=== PATIENT | female | born 1965 | race Caucasian/White ===

== ENCOUNTER 2024-01-01 14:42 | Emergency (ER) | payer OTHER, SELFPAY ==
[2024-01-01 14:45] VITALS: BP 145/87
--- NOTE | 2024-01-01 15:48 | ED.SKININJ ---
HPI-Injury
<Naa Thorne PA-C - Last Filed: 01/01/24 19:20>
General
Chief Complaint: Bite
Source: patient
Exam Limitations: none
Time Seen by Provider: 01/01/24 15:44
Nursing documentation reviewed up to this point in time: agreed with
Travel History
Have you had any contact with someone who has COVID-19?: No
Do you have any symptoms of coronavirus? Fever > 100 degrees, chills, cough, shortness of breath, sore throat, loss of taste or smell, muscle aches, or headache?: No
History of Present Illness-Injury
Is this injury a work related problem?: No
Is pt an associate of [facility]?: No
Initial Injury comments:
58-year-old female no significant past medical history presenting emergency department today with concerns of redness and swelling and her right hand following a dog bite. Patient states that this past weekend, patient was trying to break up a
fight between a valdovinos retriever and a Rottweiler. This is when she got bit. Patient denies any other trauma, denies falling to the ground. Patient states that both dogs are up-to-date on her vaccinations. Patient is personally up-to-date on her
tetanus vaccination. Patient denies any fevers or chills, any nausea or vomiting, any trouble breathing, any chest pain. Patient denies any allergies to any antibiotics. Patient states that since the injury, she has been thoroughly cleaning the
area and applying it back ointment as well as wrapping her hand.
Past History
<Naa Thorne PA-C - Last Filed: 01/01/24 19:20>
Past History
ED Past Medical History: None and Other (Heart murmur)
ED Past Surgical History: Cholecystectomy and
Social History
Tobacco: Non-smoker
Alcohol: Occasional
Personal:
Living: with family
Family History
Family History: Early CAD
Review of Systems
<Naa Thorne PA-C - Last Filed: 01/01/24 19:20>
Review of Systems
All Other Systems: ROS reviewed and negative except as documented in HPI and ROS
Phy Exam
<Naa Thorne PA-C - Last Filed: 01/01/24 19:20>
Physical Exam
Physical Exam:
General: Patient is well appearing and in no acute distress; non-toxic
Skin: Warm and dry, there is 2 puncture wounds noted at the base of the right thenar eminence, one on the volar surface and one on the dorsal surface. Patient had surrounding swelling and some mild erythema. No other rashes or lesions. No
drainage from the puncture wounds.
Head: Normocephalic, atraumatic
Eyes: Sclera non-icteric. EOMs intact.
Cardiac: Regular rate
Peripheral Vascular: 2+ radial and ulnar pulses on the right. No lower extremity swelling or edema.
Pulm: Normal respiratory effort
Musculoskeletal: Patient has full active and past range of motion of right wrist joint and the right elbow without pain. Patient has no bony tenderness palpation of the right wrist, right second through fifth phalanx, patient does have a lot of
tenderness to palpation at the base of the first proximal phalanx. No palpable bony deformities.
Neuro: CN II-XII intact, no focal neurologic deficits.
Psychiatric: Appropriate mood and affect.
Course
<Naa Thorne PA-C - Last Filed: 01/01/24 19:20>
Orders/Labs/Results
Orders:
Orders
01/01/24 15:56
CR Hand - Right 2 Views Urgent
Comment:
Reason For Exam: right thumb swelling and pain following bite
Vital Signs
Initial and Last Documented VS:
Initial Vital Signs
Temp Pulse Resp BP Pulse Ox
98.8 F 71 18 145/87 98
01/01/24 14:45 01/01/24 14:45 01/01/24 14:45 01/01/24 14:45 01/01/24 14:45
Last Documented Vital Signs
Temp Pulse Resp BP Pulse Ox
98.8 F 71 18 145/87 98
01/01/24 14:45 01/01/24 14:45 01/01/24 14:45 01/01/24 14:45 01/01/24 14:45
<Thuan Roberts DO - Last Filed: 01/01/24 16:40>
Orders/Labs/Results
Orders:
Orders
01/01/24 15:56
CR Hand - Right 2 Views Urgent
Comment:
Reason For Exam: right thumb swelling and pain following bite
Vital Signs
Initial and Last Documented VS:
Initial Vital Signs
Temp Pulse Resp BP Pulse Ox
98.8 F 71 18 145/87 98
01/01/24 14:45 01/01/24 14:45 01/01/24 14:45 01/01/24 14:45 01/01/24 14:45
Last Documented Vital Signs
Temp Pulse Resp BP Pulse Ox
98.8 F 71 18 145/87 98
01/01/24 14:45 01/01/24 14:45 01/01/24 14:45 01/01/24 14:45 01/01/24 14:45
<Naa Thorne PA-C - Last Filed: 01/01/24 19:20>
MDM/Problems Addressed
Differential Diagnosis Includes:
Differentials include cellulitis, abrasion, cyst, laceration, erysipelas, abscess, phalanx fracture
MDM/Problems Addressed:
hand pain, dog bite
Chronic conditions affecting care:
N/A
Acute Exacerbation and/or Progression of Chronic Illness:
N/A
<Naa Thorne PA-C - Last Filed: 01/01/24 19:20>
*Radiology
Radiology exam reviewed: preliminary read by ED provider (no acute fracture dislocation)
*Pulse Oximetry
Patient hypoxic: no
*Critical Care Note
Total Time (30-74mins, 75-104mins- exclusive of procedures): Not Applicable
Data Reviewed
Review of Other/Old Records Reveals: Records (Reviewed ER physician documentation from 10/19/2022)
Source: patient and records
<Naa Thorne PA-C - Last Filed: 01/01/24 19:20>
Patient Management
Escalation/DeEscalation of care consider admission/obs:
58-year-old female no significant past medical history presenting emergency department today with concerns of redness and swelling and her right hand following a dog bite. On physical exam, patient has full active and past range of motion of right
wrist joint and the right elbow without pain. Patient has no bony tenderness palpation of the right wrist, right second through fifth phalanx, patient does have a lot of tenderness to palpation at the base of the first proximal phalanx. No
palpable bony deformities. There is 2 puncture wounds noted at the base of the right thenar eminence, one on the volar surface and one on the dorsal surface. Patient had surrounding swelling and some mild erythema. No other rashes or lesions. No
drainage from the puncture wounds. Considering patient's significant tenderness to first proximal phalanx along with overlying ecchymosis, x-rayed was obtained which was negative for any acute fracture or dislocation. Considering patient's vitals
are stable and she has no systemic signs or symptoms, no lab work indicates time. Patient can be discharged with a course of Augmentin. Patient will follow-up with her primary care
ED Attending Note
<Naa Thorne PA-C - Last Filed: 01/01/24 19:20>
-
Portions of this chart may have been created with voice recognition software.� Occasional wrong word or��sound alike� substitutions may have occurred due to the inherent limitations of voice recognition software.
<Thuan Roberts, DO - Last Filed: 01/01/24 16:40>
ED Attending Note
Patient seen and examined by attending physician: Yes
I performed a history and physical exam of patient and discussed management with resident, I reviewed resident's note and agree with documented findings and plan of care.: Yes
ED Attending Note:
I have reviewed and agree with history and plan by Naa Thorne. My exam reveals mild edema of the thumb, with ecchymosis about wrist, no erythema. Patient able to fully range thumb and wrist. Do not suspect septic arthritis. Do not suspect
cellulitis. Dog vaccinations up-to-date, patient tetanus up-to-date. Treat with Augmentin. Primary care follow-up.
Discharge Plan
Departure
Patient Disposition: Home (Routine Discharge)
Date of Disposition: 01/01/24
Time of Disposition: 16:25
Patient with high blood pressure during this ER visit?: Yes
Condition: Good
Discharge Problem:
Dog bite
Instructions: Animal Bites (DC), BLOOD PRESSURE
Prescriptions:
New
amoxicillin-pot clavulanate 875-125 mg tablet
1 tab PO BID 7 Days Qty: 14 0RF
No Action
fluoxetine 20 MG capsule
20 mg PO DAILY
norethindrone-ethin estradiol [Necon 0.5/35 (28)] 1 EACH tablet
1 ea PO DAILY
meclizine 25 mg tablet
25 mg PO TID PRN (Reason: dizziness) Qty: 10 0RF
Activity Restrictions/Additional Instructions:
Your x-ray did not show any evidence of acute fracture or dislocation.
We sent Augmentin to your pharmacy. Please take this with food. Please take 1 tablet twice daily for 7 days. You can start this tomorrow.
Please return emergency department should you experience fevers or chills, intractable vomiting, purulent drainage from your hand, extension of the redness up your arm, or other concerning signs or symptoms.
Please follow-up with your primary care provider to ensure the resolution of your symptoms.
Interventions
Interventions:
*Risk Screen - Suicide Last Done: 01/01/24 16:36
*General Assessment Last Done: 01/01/24 16:36
*ED COVID-19 Vaccine History Last Done: 01/01/24 16:36
*Nursing Disposition Last Done: 01/01/24 16:36
ED-Skin Assessment Last Done: 01/01/24 16:22
Discharge Date and Time
Discharge Date/Time: 01/01/24 16:37
Print Language: [id number]
== END 2024-01-01 16:37 | disposition home or self-care (01) ==
LOC: EMR 14:42
PROVIDERS: EMERGENCY PHYSICIAN Emergency Medicine; FAMILY PHYSICIAN Nurse Practitioner Adult Health
DX: R22.31 Localized swelling, mass and lump, right upper limb (principal); W54.0XXA Bitten by dog, initial encounter; Z82.49 Family history of ischemic heart disease and other diseases of the circulatory system; Z90.49 Acquired absence of other specified parts of digestive tract
CPT/HCPCS: 99283; 73120

== ENCOUNTER → 2024-05-28 10:50 | Outpatient (REF) | payer OTHER, SELFPAY | LOC: HWRAD 10:50 | PROVIDERS: ATTENDING PHYSICIAN Nurse Practitioner Adult Health | DX: M65.4 Radial styloid tenosynovitis [de Quervain] (principal); M25.532 Pain in left wrist; M79.645 Pain in left finger(s) | CPT/HCPCS: 73110; 73140 ==

== ENCOUNTER 2024-12-05 15:30 | Inpatient (IN) | payer BC, SELFPAY ==
[2024-12-05 11:50] VITALS: BP 116/62
[2024-12-05 12:10] LABS: % Basophils 0.3 % (0-2); % Eosinophils 0.1 % (0-6); % Immature Granulocytes 0.3 % (0-0.5); % Lymphocytes 11.5 % (20.5-51.1); % Monocytes 4.1 % (1.7-9.3); % Neutrophils 83.7 % (42.2-75.2); Absolute Lymphocytes 1.3 10^3/uL (1.2-3.4); Absolute Monocytes 0.5 10^3/uL (0.1-0.6); Absolute Neutrophils 9.1 10^3/uL (1.4-6.5); Hematocrit 37.5 % (37.0-47.0); Hemoglobin 13.1 g/dL (12.0-16.0); Mean Corp Hgb Conc. 34.9 g/dL (33.0-37.0); Mean Corpuscular Hgb 31.5 pg (27.0-31.0); Mean Corpuscular Volume 90.1 fL (81.0-99.0); Mean Platelet Volume 8.7 fL (7.4-10.4); Nucleated Red Blood Cells % 0 %; Platelet Count 209 10^3/uL (130-400); Red Blood Cell Count 4.16 10^6/uL (4.20-5.40); Red Cell Dist. Width 11.6 % (11.5-14.5); White Blood Cell Count 10.9 10^3/uL (4.8-10.8)
[2024-12-05 12:24] LABS: ALT (SGPT) 35 U/L (0-35); AST (SGOT) 28 U/L (14-36); Albumin 5.2 g/dl (3.5-5.0); Alkaline Phosphatase 64 U/L (38-126); Blood Urea Nitrogen 22 mg/dl (7-17); Calcium 9.5 mg/dl (8.4-10.2); Carbon Dioxide 24 mmol/L (22-30); Chloride 103 mmol/L (98-107); Glucose 122 mg/dl (70-99); Lipase 34 U/L (23-300); Potassium 4.2 mmol/L (3.5-5.1); Sodium 139 mmol/L (135-145); Total Bilirubin 1.1 mg/dl (0.2-1.3); Total Protein 7.7 g/dl (6.3-8.2); eGFR > 60.00
[2024-12-05 13:02] VITALS: BP 97/56
--- NOTE | 2024-12-05 13:03 | ED.GENMED ---
History of Present Illness
General
Chief Complaint: Abdominal Pain
Source: patient
Exam Limitations: none
Time Seen by Provider: 12/05/24 12:38
History of Present Illness
History of Present Illness:
59yoF with a history of hyperlipidemia and anxiety presenting for evaluation of abdominal pain. Patient initially started to have pain throughout her lower abdomen and lower back about 2 weeks ago. The pain was initially a mild dull discomfort.
The abdominal discomfort seemed to resolve but the back pain persisted. She developed more severe pain in her lower abdomen yesterday evening. Pain is worse with any sort of movement. She has not taken anything [id number] for her symptoms.
She is otherwise asymptomatic and denies any fevers, nausea, vomiting, diarrhea, constipation, dysuria, rectal bleeding. Patient had a normal bowel movement this morning. She was seen by her PCP today and blood pressure was reportedly 80s/40s in
the office. Prior abdominal surgeries include a cholecystectomy and a section. She had a colonoscopy in 2021 which was reportedly normal.
Past History
Past History
ED Past Medical History: None and Other (Heart murmur)
ED Past Surgical History: Cholecystectomy and
Social History
Tobacco: Non-smoker
Alcohol: Occasional
Personal:
Living: with family
Family History
Family History: Early CAD
Phy Exam
General Physical Exam
General Presentation: well appearing
General Skin: warm and dry
General Habitus: normal
General Mental: alert
ENT Exam
ENT Exam: normocephalic
Cardiovascular Exam
Cardiovascular Exam: regular rate/rhythm
Pulmonary Exam
Pulmonary Exam: lungs clear, no respiratory distress, no rales, no crackles, no rhonchi and no wheezing
Gastrointestinal Exam
Gastrointestinal Exam: soft, non distended and other (+Generalized abdominal tenderness, worse in the suprapubic and LLQ regions. +Rebound tenderness and voluntary guarding. )
Neurological Exam
Neurological Exam: alert
Janice Coma Scale
Eye Opening: Spontaneous
Verbal Response: Oriented
Motor Response: Obeys Commands
GCS Total Score: 15
Skin Exam
Skin Exam: normal color and warm/dry
Psychiatric Exam
Psychiatric Exam: normal mood/affect
Course
Orders/Labs/Results
Orders:
Orders
12/05/24 12:01
Complete Blood Count/With Diff Urgent
Comprehensive Metabolic Panel Urgent
Lipase Urgent
12/05/24 13:01
0.9% Sodium Chloride 1000 ml [Nss] 1,000 ml IV BOLUS
Ketorolac [Toradol] 15 mg IV NOW STA
12/05/24 13:02
CT Abd/pelvis W Iv Cont Urgent
Comment:
Reason For Exam: Lower abd pain
Urinalysis Reflex To Culture Urgent
Date Specimen was Collected: 12/05/24
Time Specimen was Collected: 13:02
12/05/24 13:03
Lactate Level [Lactic Acid] Urgent
12/05/24 14:26
Piperacillin/Tazo 4.5 Gram [Zosyn] 4.5 gram in 100 ml IV NOW
12/05/24 15:00
Admit/Transfer Patient As Directed
Co-Sign Provider:
Level of Care: Inpatient admission
Assign to:: Medical/Surgical
Physician / Group: ebony
Diagnosis: acute diverticulitis
Reason for Hospitalization: acute diverticulitis
Expected length of stay greater than two midnights?: Yes
ELOS- Estimated Length of Stay in days: 3
I certify the patient meets the requirements for IP care: Yes
Code Status As Directed
Resuscitation Status: Full Code
PRN Pain Medication Management As Directed
May give lesser potent ordered pain med per pt: Yes
preference::
Protocol:: Medication orders for pain may be administered in a
manner that supports deferring to patient preference
when the pt is:
- Requesting an ordered lesser potent pain medication.
Least to most potent pain medications are defined
as: acetaminophen < NSAID < tramadol < opioids
(morphine, oxycodone, hydromorphone).
- Requesting a lesser dose of the same medication IF
ORDERED.
- Requesting a less intrusive route of administration
if both routes are prescribed by the provider (PO <
IV).
Abnormal Lab Results
12/05/24
12:01
WBC 10.9 H 10^3/uL
(4.8-10.8)
RBC 4.16 L 10^6/uL
(4.20-5.40)
MCH 31.5 H pg
(27.0-31.0)
Absolute Neuts (auto) 9.1 H 10^3/uL
(1.4-6.5)
Neutrophils % 83.7 H %
(42.2-75.2)
Lymphocytes % 11.5 L %
(20.5-51.1)
BUN 22 H mg/dl
(7-17)
Glucose 122 H mg/dl
(70-99)
Albumin 5.2 H g/dl
(3.5-5.0)
12/05/24 12:01
12/05/24 12:01
Vital Signs
Initial and Last Documented VS:
Initial Vital Signs
Temp Pulse Resp BP Pulse Ox
97.7 F 94 18 116/62 100
12/05/24 11:50 12/05/24 11:50 12/05/24 11:50 12/05/24 11:50 12/05/24 11:50
Last Documented Vital Signs
Temp Pulse Resp BP Pulse Ox
97.7 F 94 18 112/84 100
12/05/24 11:50 12/05/24 11:50 12/05/24 11:50 12/05/24 14:44 12/05/24 11:50
MDM/Problems Addressed
Differential Diagnosis Includes:
59yoF here with lower abd pain. Started with mild pain 2 weeks ago. Became severe last night. Worse with movement. BP 80s/40s at PCP appt today. BP 116/62 on arrival. She is non-toxic appearing. There is significant rebound tenderness on exam.
Differential diagnosis includes but is not limited to: Appendicitis, diverticulitis, perforated viscus, ischemic colitis
Initial ED plan: Abdominal labs obtained in triage. WBC is minimally elevated at 10.9. Remainder of labs unremarkable. Will check lactate, UA, and CT abdomen. IV Toradol and fluid bolus for symptoms.
*Critical Care Note
Total Time (30-74mins, 75-104mins- exclusive of procedures): Not Applicable
Update Note
Update Note:
Lactate within normal limits. CT shows acute diverticulitis. No evidence of perforation or abscess. 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 IV Zosyn ordered and patient admitted to the
hospitalist service for further care.
ED Attending Note
-
Portions of this chart may have been created with voice recognition software.� Occasional wrong word or��sound alike� substitutions may have occurred due to the inherent limitations of voice recognition software.
Discharge Plan
Departure
Patient Disposition: Admit
Date of Disposition: 12/05/24
Time of Disposition: 14:48
Presentation/result/management discussed w/ accepting MD/DO: Hospitalist
Discharge Problem:
Acute diverticulitis
Interventions
Interventions:
*Risk Screen - Suicide Last Done: 12/05/24 11:50
*General Assessment Last Done: 12/05/24 11:50
*Neglect/Abuse Screening Last Done: 12/05/24 11:50
WL-Imcdcm-Kvrdeupprr Assessment Last Done: 12/05/24 12:40
ED- Cardiac Assessment Last Done: 12/05/24 12:40
ED- Neurological Assessment Last Done: 12/05/24 12:40
ED- Pulmonary Assessment Last Done: 12/05/24 12:40
[2024-12-05] MEDS: NSS 1000 IV ×2 (13:08→18:27)
[2024-12-05] MEDS: TORADOL 15 MG IV (13:08)
[2024-12-05 13:30] VITALS: BP 99/62
[2024-12-05 13:37] LABS: Lactic Acid 0.9 mmol/L (0.7-2.0)
[2024-12-05 14:44] VITALS: BP 112/84
[2024-12-05] MEDS: ZOSYN 100 IV (14:46)
--- NOTE | 2024-12-05 14:49 | HPS.HSE ---
Family Physician
-
Family Physician: Tabitha Ramirez
Chief Complaint
-
left sided abdominal pain
History of Present Illness
59yoF with a history of hyperlipidemia and anxiety presenting for evaluation of left-sided abdominal pain radiating to left lower back and shoulder. It started 2 weeks ago. At that time the pain was dull, bloating which resolved in 2 days. She
developed more severe pain in her left lower abdomen yesterday evening radiating to her left lower back and left shoulder. Patient stated poor appetite for past 2 weeks. Patient denied nausea vomiting, diarrhea or constipation. Patient complained
of headache and dizzy. Patient denied any fever, chills, chest pain, short of breath. Patient denied any dysuria hematuria.
CT with acute diverticulitis in the distal descending colon. Patient received IV Zosyn in ER. Admitting for further med
Medical History
Past Medical History
Past Medical History: Reports Other
Additional Past Medical History:
Depression/anxiety, IBS, hellp, migraine
Past Surgical History: Reports Other
Additional Past Surgical History:
Cholecystectomy,
Social History
Tobacco: Non-smoker
Alcohol: Occasional
Personal:
Living: With Family
Family History
Family History: Not pertinent
Allergies / Home Medications
Allergies reflects when Allergies were last updated in [facility].
Home Medications with original date entered in [facility]
Allergy/Medication List:
Allergies
Allergy/AdvReac Type Severity Reaction Status Date / Time
No Known Allergies Allergy Verified 12/05/24 11:50
Home Medications
fluoxetine 20 mg capsule 20 mg PO HS 07/26/14
cetirizine 10 mg tablet (Zyrtec) 10 mg PO HS 12/05/24
rosuvastatin 20 mg tablet (Crestor) 20 mg PO QPM 12/05/24
Review of Systems
-
Constitutional: Reports No Symptoms
EENT: Reports No Symptoms
Respiratory: Reports No Symptoms
Cardiac: Reports No Symptoms
Abdomen/GI: Reports Abdominal Pain
: Reports No Symptoms
Musculoskeletal: Reports No Symptoms
Skin: Reports No Symptoms
Neurological: Reports No Symptoms
Endocrine: Reports No Symptoms
Hematologic/Lymphatic: Reports No Symptoms
Psych: Reports No Symptoms
Physical Exam
Vital Signs
Vital Signs
Temp Pulse Resp BP Pulse Ox
97.7 F 94 18 97/56 100
12/05/24 11:50 12/05/24 11:50 12/05/24 11:50 12/05/24 13:02 12/05/24 11:50
Physical Exam
General: Well Developed, Well Nourished and No Apparent Distress
HEENT: NormoCephalic, Moist mucous membranes and Atraumatic
Respiratory: Clear
Cardiac: S1/S2 and Regular Rhythm; No Murmur or Rub
GI: Soft, Non Tender, Non Distended and Normal Bowel Sounds; No Organomegaly
Rectal: Deferred by Provider
Musculoskeletal: No Clubbing, No Cyanosis and No Edema
Skin: No Rash
Neuro: AO x 3 and Nonfocal/grossly intact
Psych: Calm
Laboratory Results
-
12/05/24 12:01
12/05/24 12:01
Laboratory Results
Lactic Acid 0.9 mmol/L (0.7-2.0) 12/05/24 13:03
Total Bilirubin 1.1 mg/dl (0.2-1.3) 12/05/24 12:01
AST 28 U/L (14-36) 12/05/24 12:01
ALT 35 U/L (0-35) 12/05/24 12:01
Alkaline Phosphatase 64 U/L (38-126) 12/05/24 12:01
Lipase 34 U/L (23-300) 12/05/24 12:01
Data Reviewed
-
CT Scan: Report Reviewed by me
Lab Data: Labs Reviewed by me
Impression/Plan
-
# sepsis secondary to severe lower abdominal pain secondary to acute diverticulitis
- IV Zosyn continued
-NPO
- Tylenol as needed for fever or pain
- Dilaudid as needed for pain
- WBCs 10 WBC 10.9
- CT abdomen pelvis with impression ACUTE DIVERTICULITIS in the DISTAL DESCENDING COLON.
2. Mild diverticulosis throughout the descending and sigmoid colon.
3. Severe diffuse hepatic steatosis., Small hiatal hernia
# Depression/anxiety
- Fluoxetine continued
# Hyperlipidemia
-statin continued
# DVT prophylaxis
-Lovenox subcu
# CODE STATUS
-Full code
[2024-12-05 18:00] VITALS: BMI 31.5
[2024-12-05 18:01] VITALS: BP 97/68
[2024-12-05] MEDS: CRESTOR 20 MG PO (18:27)
--- NOTE | 2024-12-05 19:07 | W.PN.UPDATE ---
Update Note
Progress Note Update
This is an addendum to the H&P written by Shana Pereira on 12/05/2024.� Patient seen and examined independently with [employer].
59-year-old female past medical history of hyperlipidemia, anxiety here with abdominal pain/sepsis secondary to acute diverticulitis.��Clears, IV fluids, IV Dilaudid and Zofran, Zosyn.
[2024-12-05] MEDS: TYLENOL 650 MG PO (20:00)
[2024-12-05] MEDS: ZOSYN 50 IV (20:00)
[2024-12-05 20:48] LABS: Urine Albumin 2+ (Neg - Trace); Urine Bilirubin Negative (Negative); Urine Character Clear (Clear); Urine Color Yellow; Urine Glucose Negative (Negative); Urine Ketone Negative (Negative); Urine Leukocyte 1+ (Negative); Urine Nitrite Negative (Negative); Urine Occult Blood Negative (Negative); Urine Urobilinogen Negative (Neg - 1+)
[2024-12-05 20:53] LABS: Urine Squamous Cell 16-20 /LPF (Few)
[2024-12-05 20:54] LABS: Urine Red Blood Cell None Seen /HPF (0-2)
[2024-12-05] MEDS: PROZAC 20 MG PO (21:50)
[2024-12-05 23:45] VITALS: BP 97/57
[2024-12-06] MEDS: ZOSYN 50 IV ×4 (02:24→21:45)
[2024-12-06] MEDS: TORADOL 15 MG IV ×3 (02:27→22:23)
[2024-12-06] MEDS: NSS 1000 IV ×2 (06:16→21:48)
[2024-12-06 07:30] VITALS: BP 116/69
--- NOTE | 2024-12-06 08:25 | W.PN.HOSP.TC ---
Today's Communication/Plan
-
see PN
Assessment / Plan
Assessment / Plan
59yo F with PMHx of anxiety, HLD, atopic d/o came with abd pain, transiently happened a week ago and came back on the day of admission, but mush stronger. Found uncomplicated diverticulitis on CT.
A/P:
#Uncomplicated acute diverticulitis
slowly advance diet
IVF
Zosyn
check QTc for eventual home regimen
Last colonoscopy in 2021 normal, advised to repeat with established GI in 6-8 weeks after recovery
#Atelectasis
Incentive spirometry
#Fatty liver
Low fat diet
defer to PCP for possible GI referral
#Small hiatal hernia
asymptomatic
#HLD
#Atopic d/o
#Anxiety
cont home meds
#DJD
#Sclerotic bone island L5
bone scan as outpatient by PCP
DVT ppx on lovenox
Full code
I have spent at least 57min reviewing chart, test results and providing direct patient care
Anticipated Discharge: 24 - 48 hours
Subjective/Interval History
-
Date of Service: December 06, 2024
Objective Data
-
Vital Signs:
Vital Signs
Temp Pulse Resp BP Pulse Ox
97.9 F 69 16 116/69 99
12/06/24 07:30 12/06/24 07:30 12/06/24 07:30 12/06/24 07:30 12/06/24 07:30
Review of Systems
-
History Source: Patient
All other systems: Reviewed and negative
Abdomen/GI: Reports Abdominal Pain
Physical Exam
-
General: No Apparent Distress
HEENT: Normocephalic
Respiratory: Clear to Auscultation
Cardiac: Regular Rhythm
GI: Soft, Normal Bowel Sounds and Tender (LLQ)
Genito-urinary: No Costovertebral Tender
Skin: Warm; Negative Rash or Ulcers
Neuro: Awake, Alert, Oriented and AO x 3
Psych: Calm
[2024-12-06 15:30] VITALS: BP 122/73
[2024-12-06] MEDS: CRESTOR 20 MG PO (17:30)
[2024-12-06] MEDS: PROZAC 20 MG PO (21:46)
[2024-12-06 23:00] VITALS: BP 117/65
[2024-12-07] MEDS: ZOSYN 50 IV ×2 (02:35→09:41)
[2024-12-07 06:44] LABS: ALT (SGPT) 54 U/L (0-35); AST (SGOT) 43 U/L (14-36); Albumin 3.8 g/dl (3.5-5.0); Alkaline Phosphatase 121 U/L (38-126); Blood Urea Nitrogen 13 mg/dl (7-17); Calcium 8.3 mg/dl (8.4-10.2); Carbon Dioxide 21 mmol/L (22-30); Chloride 112 mmol/L (98-107); Estimated Creatinine Clearance 75 ml/min; Glucose 102 mg/dl (70-99); Sodium 144 mmol/L (135-145); Total Bilirubin 1.3 mg/dl (0.2-1.3); Total Protein 5.9 g/dl (6.3-8.2); eGFR > 60.00
[2024-12-07 06:51] LABS: % Basophils 0.2 % (0-2); % Eosinophils 0.5 % (0-6); % Immature Granulocytes 0.2 % (0-0.5); % Lymphocytes 28.9 % (20.5-51.1); % Monocytes 7.2 % (1.7-9.3); Absolute Lymphocytes 1.9 10^3/uL (1.2-3.4); Absolute Monocytes 0.5 10^3/uL (0.1-0.6); Absolute Neutrophils 4.1 10^3/uL (1.4-6.5); Hematocrit 31.1 % (37.0-47.0); Mean Corp Hgb Conc. 35.4 g/dL (33.0-37.0); Mean Corpuscular Hgb 31.5 pg (27.0-31.0); Mean Corpuscular Volume 89.1 fL (81.0-99.0); Mean Platelet Volume 9.4 fL (7.4-10.4); Nucleated Red Blood Cells % 0 %; Platelet Count 149 10^3/uL (130-400); Red Blood Cell Count 3.49 10^6/uL (4.20-5.40); Red Cell Dist. Width 11.7 % (11.5-14.5); White Blood Cell Count 6.5 10^3/uL (4.8-10.8)
[2024-12-07 07:55] VITALS: BP 143/73
--- NOTE | 2024-12-07 10:01 | W.PN.HOSP.TC ---
Today's Communication/Plan
-
had BM
pain subsided
start low residue diet and d/c if tolerated
Assessment / Plan
Assessment / Plan
59yo F with PMHx of anxiety, HLD, atopic d/o came with abd pain, transiently happened a week ago and came back on the day of admission, but mush stronger. Found uncomplicated diverticulitis on CT.
A/P:
#Uncomplicated acute diverticulitis
slowly advance diet
IVF
Zosyn
QTc WNL - Levaquin+Flagyl upon D/C
Last colonoscopy in 2021 normal, advised to repeat with established GI in 6-8 weeks after recovery
#Atelectasis
Incentive spirometry
#Fatty liver
Low fat diet
defer to PCP for possible GI referral
#Small hiatal hernia
asymptomatic
#HLD
#Atopic d/o
#Anxiety
cont home meds
#DJD
#Sclerotic bone island L5
bone scan as outpatient by PCP
DVT ppx on lovenox
Full code
I have spent at least 37min reviewing chart, test results and providing direct patient care
Anticipated Discharge: Within 24 hours
Subjective/Interval History
-
Date of Service: December 07, 2024
Objective Data
-
Labs:
Laboratory Results
12/07/24
05:06
WBC 6.5
Hgb 11.0 L
Hct 31.1 L
Plt Count 149 D
Sodium 144
Potassium 4.0
Chloride 112 H
Carbon Dioxide 21 L
BUN 13
Creatinine 0.8
Glucose 102 H
Calcium 8.3 L
Total Bilirubin 1.3
AST 43 H
ALT 54 H
Alkaline Phosphatase 121
Vital Signs:
Vital Signs
Temp Pulse Resp BP Pulse Ox
99.5 F 58 16 143/73 97
12/07/24 07:55 12/07/24 07:55 12/07/24 07:55 12/07/24 07:55 12/07/24 07:55
I&O
12/06/24 12/07/24 12/08/24
06:59 06:59 06:59
Intake Total 500 / 500
Balance 500 / 500
Review of Systems
-
History Source: Patient
All other systems: Reviewed and negative
Physical Exam
-
General: Comfortable
HEENT: Normocephalic
GI: Soft, Nontender and Nondistended
Neuro: Awake, Alert, Oriented and AO x 3
Psych: Calm
--- NOTE | 2024-12-07 10:53 | W.DCSUMMARY ---
Discharge Summary
Discharge Data
Date of Admission: 12/05/24
Date of Discharge: 12/07/24
-
Pending Results: No
Hospital Course
59yo F with PMHx of anxiety, HLD, atopic d/o came with abd pain, transiently happened a week ago and came back on the day of admission, but mush stronger. Found uncomplicated diverticulitis on CT. Rapidly improved, tolerated regular diet. Last
colonoscopy in 2021 normal, advised to repeat with established GI in 6-8 weeks after recovery. Family provider for follow up on diverticulitis, fatty liver disease and schedule DEXA. QTc WNL - Levaquin+Flagyl upon D/C. Precautions discussed. WIth no
urinary symptoms - Ucx result will not change mgmt as even if bacteria found - considered to be asymptomatic bacteriuria. Medically stable for d/c home, plan total course of 7 days due to mild presentation
I have spent at least 37min reviewing chart, test results and providing direct patient care
Patient was managed for:
#Uncomplicated acute diverticulitis
#Atelectasis
#Fatty liver
#Small hiatal hernia
#HLD
#Atopic d/o
#Anxiety
#DJD
#Sclerotic bone island L5
Discharge Plan
-
Patient Disposition: Home (Routine Discharge)
Discharge Diagnosis/Procedures: diverticulitis
Diet: Other diet
Additional Diets: Low residue - description printed out and provided to the patient
Activity: No restrictions
Referrals:
Tabitha Ramirez CRNP [Family Provider] - in less than 1 week (follow up on diverticulitis, fatty liver disease and schedule DEXA)
Patsy Sampson DO [Active] - in one to two months (colonoscopy)
Prescriptions:
New
levofloxacin 750 mg tablet
750 mg PO DAILY Qty: 5 0RF
metronidazole 500 mg tablet
500 mg PO Q8H Qty: 15 0RF
Continued
fluoxetine 20 MG capsule
20 mg PO HS
cetirizine [Zyrtec] 10 mg Tablet
10 mg PO HS
rosuvastatin [Crestor] 20 mg Tablet
20 mg PO QPM
Discharge Orders:
Discharge Patient (As Directed); Ordered 12/07/24
Ordered By: Darryl Richardson
Discharge Date and Time
Print Language: FRENCH
--- NOTE | 2024-12-07 11:09 | CM ---
Patient seen at bedside.
IMM n/a
IA completed
Lives with spouse, 2 story home, 4 steps to enter
PLOF: Independent
Denies DME, Denies VN
PCP: Tabitha Ramirez
Pharmacy: [facility] [address] [place]
PLAN: home No needs
dtr to transport
[2024-12-07 11:58] VITALS: BP 115/77
== END 2024-12-07 12:26 | disposition home or self-care (01) | DRG 392 ==
LOC: 3 WEST ACU 15:30
PROVIDERS: Emergency Medicine; Physician Assistant; ADMITTING PHYSICIAN Hospitalist; ATTENDING PHYSICIAN Internal Medicine; EMERGENCY PHYSICIAN Emergency Medicine; FAMILY PHYSICIAN Nurse Practitioner Adult Health
DX: K57.32 Diverticulitis of large intestine without perforation or abscess without bleeding (principal); J98.11 Atelectasis; F41.9 Anxiety disorder, unspecified; F32.A Depression, unspecified; E78.5 Hyperlipidemia, unspecified; K76.0 Fatty (change of) liver, not elsewhere classified; K44.9 Diaphragmatic hernia without obstruction or gangrene
CPT/HCPCS: 74177; 80053; 81003; 81015; 83605; 83690; 85025; 87086; 93005; 96361; 96365; 96375; 99284; Q9967

== ENCOUNTER → 2025-02-05 16:22 | Outpatient (REF) | payer BC, SELFPAY | LOC: WDC 16:22 | PROVIDERS: ATTENDING PHYSICIAN Nurse Practitioner Adult Health | DX: Z12.31 Encounter for screening mammogram for malignant neoplasm of breast (principal) | CPT/HCPCS: 77063; 77067 ==

== ENCOUNTER 2025-02-09 06:21 | Day surgery (SDC) | payer BC, SELFPAY | END 2025-02-09 16:38 | disposition home or self-care (01) | LOC: GI 06:21 | PROVIDERS: ATTENDING PHYSICIAN Internal Medicine Gastroenterology | DX: D12.0 Benign neoplasm of cecum (principal); K57.30 Diverticulosis of large intestine without perforation or abscess without bleeding; K64.8 Other hemorrhoids; Z87.19 Personal history of other diseases of the digestive system | CPT/HCPCS: 45385; 88305 ==